=== PATIENT | female | born 1960 | race Caucasian/White ===

== ENCOUNTER 2017-06-14 17:57 | Emergency (ER) | payer MEDICAID, OTHER ==
[~2017-06-14] VITALS: Ht 167.6 cm; Wt 57.0 kg
[2017-06-14] MEDS ORDERED: METF500T4 PO (18:15)
[2017-06-14 18:44] LABS: ASPARTATE AMINO TRANSFERASE 146 U/L (15-37); BLOOD UREA NITROGEN 10 mg/dL (7-18)
[2017-06-14 19:00] LABS: HEMATOCRIT 39.4 % (34.6-47.8); HEMOGLOBIN 13.5 g/dL (11.7-16.4); WHITE BLOOD COUNT 4.8 x10^3/uL (3.4-10)
[2017-06-14 19:17] VITALS: BP 163/87
== END 2017-06-14 20:07 | disposition home or self-care (01) ==
LOC: ED 18:59
DX: F20.1 Disorganized schizophrenia (principal); F60.0 Paranoid personality disorder; F17.200 Nicotine dependence, unspecified, uncomplicated; E11.9 Type 2 diabetes mellitus without complications
CPT/HCPCS: 36415; 80053; 85025; 99284

== ENCOUNTER 2018-01-17 21:18 | Emergency (ER) | payer MEDICAID ==
[~2018-01-17] VITALS: Ht 162.6 cm; Wt 72.0 kg
[~2018-01-17 21:18] MED LIST: METF500T5 PO
[2018-01-17 21:29] VITALS: BP 132/84
[2018-01-17] MEDS ORDERED: LORazepam 1MG TABLET ONE (21:55)
[2018-01-17] MEDS ORDERED: LORazepam 1MG TABLET PO ONE (22:00)
== END 2018-01-17 22:04 | disposition home or self-care (01) ==
LOC: ED 21:35
DX: F15.250 Other stimulant dependence with stimulant-induced psychotic disorder with delusions (principal); E11.9 Type 2 diabetes mellitus without complications; Z86.19 Personal history of other infectious and parasitic diseases; F20.9 Schizophrenia, unspecified
CPT/HCPCS: 99284

== ENCOUNTER 2018-01-30 15:32 | Inpatient (IN) | payer MEDICAID ==
[~2018-01-30] VITALS: Ht 160 cm; Wt 53.0 kg
[2018-01-30] MEDS ORDERED: PROPOFOL 100 ML IV PRN ×2 (16:30→17:39)
[2018-01-30] MEDS ORDERED: ETOMIDATE 20 MG/10 ML IVPush ONE (16:30)
[2018-01-30] MEDS ORDERED: SUCCINYLCHOLINE 20 MG/ML, 10ML IVPush ONE (16:30)
[2018-01-30 17:25] VITALS: BP 135/62
[2018-01-30] MEDS ORDERED: LACTULOSE 20 GM/30 ML UDC NG PRN (18:00)
[2018-01-30] MEDS ORDERED: FAMOTIDINE 20 MG/2 ML IV SCH (18:00)
[2018-01-30] MEDS ORDERED: SENNOSIDES 8.8 MG/5 ML ORAL SOL NG PRN (18:00)
[2018-01-30] MEDS ORDERED: LIDOCAINE-MPF 1%, 2ML ENDO PRN (18:00)
[2018-01-30] MEDS ORDERED: SENNA/DOCUSATE TABLET NG PRN (18:00)
[2018-01-30] MEDS ORDERED: BISACODYL 10 MG SUPP PR PRN (18:00)
[2018-01-30] MEDS ORDERED: PHARMACY MAY ADJ FOR RENAL FX MC SCH (18:00)
[2018-01-30] MEDS ORDERED: ACETAMINOPHEN 650 MG/20.3 ML UDC NG PRN (18:00)
== END 2018-01-30 21:00 | disposition home or self-care (01) | DRG 951 ==
LOC: ED 15:55 → EDIP 16:15 → EDUNIT# 16:15
PROVIDERS: ADMIT Internal Medicine; ATTEND Internal Medicine
DX: Z02.9 Encounter for administrative examinations, unspecified (principal)
CPT/HCPCS: 71045; 94002; 99285; J0330

== ENCOUNTER 2018-01-30 17:45 | Inpatient (IN) | payer MEDICAID, OTHER ==
[~2018-01-30] VITALS: Ht 167.6 cm; Wt 63.5 kg
[~2018-01-30 17:45] MED LIST changes: +ETOMIDATE 40 MG/20 ML ONE; +PROPOFOL 10 MG/ML, 100ML IV ONE; +SUCCINYLCHOLINE 20 MG/ML, 10ML ONE
[2018-01-30] MEDS ORDERED: SENNOSIDES 8.8 MG/5 ML ORAL SOL NG PRN (18:00)
[2018-01-30] MEDS ORDERED: PHARMACY MAY ADJ FOR RENAL FX MC SCH (18:00)
[2018-01-30] MEDS ORDERED: LIDOCAINE-MPF 1%, 2ML ENDO PRN (18:00)
[2018-01-30] MEDS ORDERED: PROPOFOL 100 ML IV PRN (18:00)
[2018-01-30] MEDS ORDERED: BISACODYL 10 MG SUPP PR PRN (18:00)
[2018-01-30] MEDS ORDERED: SENNA/DOCUSATE TABLET NG PRN (18:00)
[2018-01-30] MEDS ORDERED: LACTULOSE 20 GM/30 ML UDC NG PRN (18:00)
[2018-01-30] MEDS ORDERED: ACETAMINOPHEN 650 MG/20.3 ML UDC NG PRN (18:00)
[2018-01-30] MEDS ORDERED: MIDAZOLAM 1 MG/ML, 2ML IVPush ONE (18:30)
[2018-01-30 18:41] LABS: MEAN CORPUSCULAR HEMOGLOBIN 33.4 pg (27.0-34.8); MEAN CORPUSCULAR HGB CONC 34.6 g/dL (32.4-35.8); MEAN CORPUSCULAR VOLUME 96.6 fL (80-100); MEAN PLATELET VOLUME 10.3 fL (7.4-10.4); PLATELET COUNT 61 x10^3/uL (130-400); RED BLOOD COUNT 4.19 x10^6/uL (3.82-5.3); RED CELL DISTRIBUTION WIDTH 13.6 % (9.6-15.2)
[2018-01-30 18:50] LABS: ALANINE AMINOTRANSFERASE 140 U/L (12-78); ALBUMIN 2.9 g/dL (3.4-5.0); ANION GAP 9 mmol/L (5-15); CALCIUM 7.6 mg/dL (8.5-10.1); CHLORIDE 112 mmol/L (98-107); CREATININE 0.56 mg/dL (0.55-1.02)
[2018-01-30 18:52] LABS: ALKALINE PHOSPHATASE 117 U/L (45-117); BILIRUBIN,TOTAL 1.1 mg/dL (0.2-1.0); SALICYLATE LEVEL < 1.7 mg/dL (2.8-20.0); TOTAL PROTEIN 6.4 g/dL (6.4-8.2); TRIGLYCERIDES 109 mg/dL (50-200); TROPONIN I < 0.015 ng/mL (0.000-0.045)
[2018-01-30 18:53] LABS: MD YES
[2018-01-30 18:54] LABS: ACETAMINOPHEN < 2 mcg/mL (10-30)
[2018-01-30 18:56] LABS: EOS#(MANUAL) 0.08 x10^3/uL (0.0-0.4); EOS% (MANUAL) 2 % (1-7); LYMPH#(MANUAL) 1.08 x10^3/uL (1-3.4); LYMPHS% (MANUAL) 27 % (22-44); MONOS#(MANUAL) 0.28 x10^3/uL (0.3-2.7); MONOS% (MANUAL) 7 % (2-9); SEG#(MANUAL) 2.56 x10^3/uL (1.8-6.8); SEGS% (MANUAL) 64 % (42-75)
[2018-01-30 18:57] LABS: <PLATELET ESTIMATE> DECREASED; <PLT MORPHOLOGY> NORMAL PLT MORPH; <RBC MORPHOLOGY> NORMAL
[2018-01-30 19:10] LABS: INTERNATIONAL NORMALIZED RATIO 1.16 (0.93-1.1)
[2018-01-30] MEDS: FAMOTIDINE 20 MG/2 ML IV SCH (20:25)
[2018-01-30] MEDS: HEPARIN 5,000 UNITS/ML, 1ML SQ SCH (20:25)
[2018-01-30] MEDS: POTASSIUM CHLORIDE 20 MEQ in SODIUM CHLORIDE 0.9% 1,000 ML IV SCH (20:25)
[2018-01-30] MEDS: PLEASE ENTER ALLERGIES MC SCH (20:26)
[2018-01-30 22:38] LABS: MICROSCOPIC INDICATED
[2018-01-30 22:47] LABS: AMPHETAMINE SCREEN, URINE Negative (Negative); BARBITURATE SCREEN, URINE Negative (Negative); BENZODIAZEPINE SCREEN, URINE Negative (Negative); CANNABINOID SCREEN, URINE Positive (Negative); COCAINE SCREEN, URINE Negative (Negative); METHADONE SCREEN, URINE Negative (Negative); OPIATE SCREEN, URINE Negative (Negative)
[2018-01-30 22:53] LABS: CULTURE INDICATED? NO
[2018-01-30 22:59] VITALS: BP 84/47
[2018-01-31] MEDS: PLEASE ENTER ALLERGIES MC SCH (03:07)
[2018-01-31 03:35] VITALS: BP 105/56
[2018-01-31 04:48] LABS: BASOPHILS # (AUTO) 0.03 x10^3/uL (0-0.1); BASOPHILS % (AUTO) 1 % (0-1); EOSINOPHILS # (AUTO) 0.08 x10^3/uL (0-0.4); EOSINOPHILS % (AUTO) 2 % (1-7); LYMPHOCYTES # (AUTO) 1.37 x10^3/uL (1-3.4); LYMPHOCYTES % (AUTO) 33 % (22-44); MD SCAN; MEAN CORPUSCULAR HEMOGLOBIN 33.1 pg (27.0-34.8); MEAN CORPUSCULAR HGB CONC 34.1 g/dL (32.4-35.8); MEAN CORPUSCULAR VOLUME 97.1 fL (80-100); MONOCYTES # (AUTO) 0.31 x10^3/uL (0.2-0.8); MONOCYTES % (AUTO) 8 % (2-9); NEUTROPHILS # (AUTO) 2.36 x10^3/uL (1.8-6.8); NEUTROPHILS % (AUTO) 57 % (42-75); PLATELET COUNT 61 x10^3/uL (130-400); RED BLOOD COUNT 3.74 x10^6/uL (3.82-5.3); RED CELL DISTRIBUTION WIDTH 13.9 % (9.6-15.2)
[2018-01-31] MEDS: HEPARIN 5,000 UNITS/ML, 1ML SQ SCH ×3 (05:11→23:04)
[2018-01-31 05:16] LABS: ANION GAP 9 mmol/L (5-15); CALCIUM 7.4 mg/dL (8.5-10.1); CHLORIDE 116 mmol/L (98-107); CREATININE 0.55 mg/dL (0.55-1.02)
[2018-01-31] MEDS: POTASSIUM CHLORIDE 20 MEQ in SODIUM CHLORIDE 0.9% 1,000 ML IV SCH ×2 (05:39→23:04)
[2018-01-31] MEDS: FAMOTIDINE 20 MG/2 ML IV SCH ×2 (08:12→23:04)
[2018-01-31] MEDS: CHLORDIAZEPOXIDE 25 MG CAPSULE PO SCH ×3 (13:11→23:04)
[2018-01-31 18:42] VITALS: BP 146/65
[2018-02-01 01:30] VITALS: BP 132/65
[2018-02-01 05:04] LABS: MEAN CORPUSCULAR HEMOGLOBIN 33.3 pg (27.0-34.8); MEAN CORPUSCULAR HGB CONC 34.4 g/dL (32.4-35.8); MEAN CORPUSCULAR VOLUME 96.9 fL (80-100); RED BLOOD COUNT 3.71 x10^6/uL (3.82-5.3); RED CELL DISTRIBUTION WIDTH 13.4 % (9.6-15.2)
[2018-02-01] MEDS: HEPARIN 5,000 UNITS/ML, 1ML SQ SCH ×2 (05:07→13:20)
[2018-02-01 05:15] LABS: CHLORIDE 110 mmol/L (98-107)
[2018-02-01 05:20] LABS: ANION GAP 6 mmol/L (5-15); CALCIUM 7.2 mg/dL (8.5-10.1); CREATININE 0.53 mg/dL (0.55-1.02)
[2018-02-01 05:40] LABS: MEAN PLATELET VOLUME 10.1 fL (7.4-10.4)
[2018-02-01 05:42] LABS: PLATELET COUNT 45 x10^3/uL (130-400)
[2018-02-01 05:45] LABS: BASOPHILS # (AUTO) 0.02 x10^3/uL (0-0.1); BASOPHILS % (AUTO) 1 % (0-1); EOSINOPHILS # (AUTO) 0.06 x10^3/uL (0-0.4); EOSINOPHILS % (AUTO) 2 % (1-7); LYMPHOCYTES # (AUTO) 1.02 x10^3/uL (1-3.4); LYMPHOCYTES % (AUTO) 30 % (22-44); MD SCAN; MONOCYTES # (AUTO) 0.38 x10^3/uL (0.2-0.8); MONOCYTES % (AUTO) 11 % (2-9); NEUTROPHILS % (AUTO) 56 % (42-75)
[2018-02-01 07:48] VITALS: BP 127/63
[2018-02-01] MEDS ORDERED: MAGNESIUM SULFATE PMX 2GM/50ML 50 ML IV ONE (08:00)
[2018-02-01] MEDS: CHLORDIAZEPOXIDE 25 MG CAPSULE PO SCH (09:00)
[2018-02-01] MEDS: FAMOTIDINE 20 MG/2 ML IV SCH (09:46)
[2018-02-01 14:33] VITALS: BP 135/56
[2018-02-01] MEDS: POTASSIUM CHLORIDE 20 MEQ in SODIUM CHLORIDE 0.9% 1,000 ML IV SCH (15:29)
[2018-02-01 19:02] VITALS: BP 162/77
== END 2018-02-01 19:00 | disposition left against medical advice (07) | DRG 208 ==
LOC: ED 18:00 → EDIP 18:01 → MERGE 18:01 → EDBD 18:01 → CCU 19:57 → 3NE 01-31 14:03
PROVIDERS: ADMIT Hospitalist; ATTEND Internal Medicine
PROC: 0BH17EZ Insertion of Endotracheal Airway into Trachea, Via Natural or Artificial Opening (ICD-10-PCS; principal; 2018-01-30)
PROC: 5A1935Z Respiratory Ventilation, Less than 24 Consecutive Hours (ICD-10-PCS; 2018-01-30)
PROC: 0T9B70Z Drainage of Bladder with Drainage Device, Via Natural or Artificial Opening (ICD-10-PCS; 2018-01-30)
DX: J96.00 Acute respiratory failure, unspecified whether with hypoxia or hypercapnia (principal); G93.40 Encephalopathy, unspecified; F10.129 Alcohol abuse with intoxication, unspecified; D69.6 Thrombocytopenia, unspecified; F12.90 Cannabis use, unspecified, uncomplicated; Z51.5 Encounter for palliative care
CPT/HCPCS: 36415; 36600; 99291; S0028; 70450; 71045; 80048; 80053; 80307; 80329; 81001; 82803; 83605; 83735; 84100; 84478; 84484; 85025; 85610; 87070; 87077; 87081; 87184; 87205; 94002; 94003; 94150; 94640; J1644; J2704; J3480; J3490; G0480; J0330; J3475; J7030